=== PATIENT | male | born 1990 | race Two or more races ===

== ENCOUNTER 2019-10-11 15:55 | Emergency (ER) | payer OTHER ==
[~2019-10-11] VITALS: Ht 188 cm; Wt 99.8 kg
[2019-10-11 16:32] LABS: APPEARANCE,URINE Clear (CLEAR); BILIRUBIN,URINE Negative (NEGATIVE); BLOOD, URINE Negative Ery/uL (NEGATIVE); COLOR,URINE Yellow (YELLOW); KETONES,URINE Negative (NEGATIVE); LEUKOCYTE ESTERASE ,URINE Negative (NEGATIVE); NITRITE, URINE Negative (NEGATIVE); PH,URINE 5.5 (5.0-8.0); PROTEIN,URINE Negative (NEGATIVE); UGLUCOSE Negative (NEGATIVE); UROBILINOGEN,URINE 0.2 EU/dL (0.2)
[2019-10-11] MEDS ORDERED: LIDOCAINE 1% INJ 50 ML MDV IJ ONE (17:00)
[2019-10-11] MEDS ORDERED: CEFTRIAXONE 500 MG VIAL ONE (17:00)
[2019-10-11] MEDS ORDERED: AZITHROMYCIN 250 MG TABLET ONE (17:01)
[2019-10-11] MEDS: CEFTRIAXONE 500 MG VIAL IM ONE (17:05)
[2019-10-11] MEDS: AZITHROMYCIN 250 MG TABLET PO ONE (17:05)
--- NOTE | 2019-10-11 17:14 | NUR ---
Patient discharged to home in stable condition. Written and verbal after care instructions given. Patient verbalizes understanding of instruction.
[2019-10-11 17:16] VITALS: BP 128/87
== END 2019-10-11 17:17 | disposition home or self-care (01) ==
LOC: ER 16:01
DX: A64 Unspecified sexually transmitted disease (principal)
CPT/HCPCS: 81001; 87491; 87591; 96372; 99283; J0696; J3490; 81000-TC